=== PATIENT | female | born 1970 | race Two or more races ===

== ENCOUNTER 2024-12-14 20:03 | Emergency (ER) | payer MEDICAID, SELFPAY ==
[2024-12-14 20:04] VITALS: BMI 33.0
[2024-12-14 21:56] VITALS: BP 160/97; PULSE 77; RESP 18; TEMP 37; O2SAT 96
--- NOTE | 2024-12-14 22:34 | XR_ITS ---
Examination: CT cervical spine without contrast 2-D sagittal reconstructions 2-D coronal reconstructions 3-D reconstructions. Exam date and time:December 14, 2024 10:51 PM INDICATIONS: Injury to head and neck today, head pain and neck pain CTDI:vol (mGy) 1540 DLP: (mGycm) 341 Technique: Multiple 2 mm axial sections of the cervical spine have been obtained. The coronal and sagittal reconstructions have been obtained. 3-D reconstructions have been obtained. Low dose protocols were performed. One or more of the following dose reduction techniques were used; automated exposure control, adjustment of the mA and/or KV according to patient size, use of iterative reconstruction technique. Findings: Axial sections demonstrate intact base of the skull. C1 exhibit satisfactory relationship to the odontoid. No acute cervical vertebral body fracture seen. Alignment posterior spinous processes satisfactory. Impression: No acute cervical fracture.
--- NOTE | 2024-12-14 22:34 | XR_ITS ---
Examination: CT brain head without contrast. 2-D sagittal coronal reconstructions Date and time of exam:December 24, 2024 10:50 PM INDICATION: Injury to the head today followed by head pain and dizziness CTDI: vol (mGy):46 DLP: (mGycm):899 Technique: Multiple CT axial sections of the brain have been obtained, 5 mm slice thickness. Contrast has not been administered. 2-D sagittal, coronal reconstructions have been obtained Low dose protocols were performed. One or more of the following dose reduction techniques were used; automated exposure control, adjustment of the mA and/or KV according to patient size, use of iterative reconstruction technique. Findings: No significant ventricular enlargement. Intra-axial or extra-axial hemorrhage density is not seen. No mass effect or midline shift Basal cisterns are not remarkable. Fourth ventricle is midline. Cranial vault intact. Impression: Negative for acute hemorrhage, mass effect or midline shift
[2024-12-14 22:35] LABS: HCG Qualitative,Urine Negative
--- NOTE | 2024-12-14 22:36 | PD.EDHEAD ---
ED Head Injury RME/HPI General Chief complaint: Head Injury Stated complaint: HIT HEAD ON METAL BAR AT WORK Time Seen by Provider: 12/14/24 22:13 Arrival date/time: 12/14/24 20:03 RME / HPI RME / HPI Narrative: 53-year-old female presents to the ED with a complaint of left-sided head contusion, dizziness and decreased concentration secondary to an injury she sustained at work. Patient states she bent over to throw away some trash and struck her head on a metal plate on the wall. This injury occurred yesterday. She denies any loss of consciousness but states she feels like she is weak. She also has associated neck pain she took ibuprofen 800 mg tonight about 7 PM. She has had numbness to her bilateral fingers since the injury. She has had visual changes since the injury but is unable to qualify the changes. Related Data Home Medications ?Medication ?Instructions ?Recorded ?Confirmed losartan 100 1 tab PO QDAY 11/07/17 11/07/17 mg-hydrochlorothiazide 25 mg tablet (Hyzaar) Previous Rx's ?Medication ?Instructions ?Recorded acetaminophen 650 mg 650 mg PO Q8H PRN fever or pain 04/17/18 tablet,extended release #30 tabs cyclobenzaprine 10 mg tablet 10 mg PO Q8H PRN muscle spasm / 04/17/18 pain #14 tabs meloxicam 15 mg tablet (Mobic) 15 mg PO QDAY #10 tabs 04/17/18 ibuprofen 800 mg tablet 800 mg PO Q6H PRN pain #14 tabs 05/21/23 lidocaine 5 % topical patch 1 patch topical Q24H #15 ea 12/15/24 (Lidoderm) meloxicam 15 mg tablet 15 mg PO QDAY #10 tabs 12/15/24 methocarbamol 500 mg tablet 500 mg PO TID PRN Muscle spasms 12/15/24 #15 tabs Allergies Allergy/AdvReac Type Severity Reaction Status Date / Time No Known Allergies Allergy Verified 12/14/24 20:04 Review of Systems Review of Systems Systems Reviewed: All systems reviewed, normal except as documented Past Medical History Past Medical History NEUROLOGIC: Positive Migraine; Negative Neurological Disorders or Seizures CARDIAC: Positive Cardiac Disorders and Hypertension; Negative Congestive Heart Failure RESPIRATORY: Negative Chronic Obstructive Pulmonary Disease (COPD) GASTROINTESTINAL: Positive Gastrointestinal Disorders and Obesity; Negative Hepatitis or Colorectal Cancer GENITOURINARY: Negative Genitourinary Disorders, Renal Disease or Prostate Cancer REPRODUCTIVE: Positive Previous Pregnancies; Negative Breast Cancer, Endometriosis, Pelvic Inflammatory Disease, Testicular Cancer or Uterine Prolapse MUSCULOSKELETAL: Negative Musculoskeletal Disorders or Bone Cancer ENT: Negative Cataracts ENDOCRINE: Negative Endocrine Disorders, Diabetes Mellitus Type 1 or Diabetes Mellitus Type 2 HEMATOLOGIC: Negative Blood Disorders PSYCHO/SOCIAL: Positive Anxiety OTHER HISTORY: Negative Hospitalization, Autoimmune Disease, Down Syndrome, Developmental Delay, Shingles, Falls, Blood Transfusions, Blood Transfusion Reaction, Anesthesia Reactions, Organ Transplant, Chemotherapy, Radiation Therapy, Hyperbaric Therapy, MRSA, VRSA, Vancomycin-Resistant Enterococci, Human Immunodeficiency Virus (HIV), Chicken Pox, Measles, Mumps, Rubella (Armenian Measles), Pertussis, Clostridium Difficile, Breast Cancer, Cervical Cancer, Colorectal Cancer, Lung Cancer, Ovarian Cancer, Prostate Cancer or Testicular Cancer Family History FAMILY HISTORY: Negative Family Psychiatric Problems, Family Respiratory Disorders, Family Cardiac Disorders, Family Gastrointestinal Problems, Family Cancer, Family Surgery or Family Anesthesia Reaction Surgical History SURGICAL: Positive Abdominal Surgery, Joint Replacement and Tubal Ligation; Negative Cardiac Surgery, Endocrine Surgery, Thyroidectomy, Ear Surgery, Tympanostomy Tube, Eye Surgery, Nose Surgery, Oral Surgery, Tonsillectomy, Adenoidectomy, Cochlear Implant, Corneal Transplant, Throat Surgery, Tracheostomy, Gastric Bypass Surgery, Gastrostomy, Bowel Surgery, Nephrectomy, Transurethral Resection, Neurologic Surgery, Brain Shunt, Mastectomy, Lumpectomy, Hysterectomy, Section, Vasectomy or Organ Transplant Social History SMOKING STATUS: Never smoker SECOND HAND EXPOSURE: No ED Exam Narrative Physical exam: A&O, afebrile and non-toxic appearing 53-year-old female, no acute distress. Lung are clear, RRR. TMs are without blood, nares are pale and boggy without bleeding, pharynx is normal. Pupils are PERRL, EOMs are intact, cranial nerves II through XII grossly intact. 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 Sensory and motor are intact to all 4 extremities. DTRs intact. No pronator drift noted. Moves all extremities well. Course Orders Category Date Time Status CT cervical spine wo con Stat Exams 12/14/24 22:[address] head/brain wo con Stat Exams 12/14/24 22:34 Completed HCG Qualitative,Urine Stat Lab 12/14/24 21:54 Completed Acetaminophen Tab [Tylenol ES Tab] Med 12/14/24 22:34 Discontinued 1,000 mg PO X1 ONE Vital Signs Vital signs: Vital Signs Temperature 98.6 F 12/14/24 21:56 Pulse Rate 77 12/14/24 21:56 Respiratory Rate 18 12/14/24 21:56 Blood Pressure 160/97 H 12/14/24 21:56 Pulse Oximetry (%) 96 12/14/24 21:56 Oxygen Delivery Method Room Air 12/14/24 21:56 Head Injury Medications / Prescriptions Medication administrations:: Medication Administration History Discontinued Medications Acetaminophen (Acetaminophen 500 Mg Tablet) 1,000 mg PO X1 ONE Stop: 12/14/24 22:35 Last Admin: 12/14/24 22:57 Dose: 1,000 mg Documented By: CVL Discharge Plan Plan Patient Disposition: HOME (Self Care) Discharge Disposition comment: Stable Prescriptions/Referrals Prescriptions/Med Rec: New meloxicam 15 mg tablet 15 mg PO QDAY Qty: 10 0RF methocarbamol 500 mg tablet 500 mg PO TID PRN (Reason: Muscle spasms) Qty: 15 0RF Rx Instructions: Do not drive or operate machinery while taking this medication. lidocaine [Lidoderm] 5 % adhesive patch,medicated 1 patch topical Q24H Qty: 15 0RF Rx Instructions: Apply to most painful area every 24 hours. Remove after 12 hours and do not apply until the next day. No Action cyclobenzaprine 10 mg tablet 10 mg PO Q8H PRN (Reason: muscle spasm / pain) Qty: 14 0RF meloxicam [Mobic] 15 mg tablet 15 mg PO QDAY Qty: 10 0RF acetaminophen 650 mg tablet extended release 650 mg PO Q8H PRN (Reason: fever or pain) Qty: 30 0RF Rx Instructions: swallow whole; do not crush, chew, break, dissolve, cut, or open losartan-hydrochlorothiazide [Hyzaar] 100-25 mg Tablet 1 tab PO QDAY ibuprofen 800 mg tablet 800 mg PO Q6H PRN (Reason: pain) Qty: 14 0RF Referrals: David Lopes MD [Primary Care Provider] - In 1 week Problem List Clinical Impression: Concussion without loss of consciousness, Postconcussion syndrome, Acute strain of neck muscle Patient/Caregiver Discharge Instructions Education Materials: After a Concussion, ED Head Injury (Adult), ED Neck Sprain or Strain Additional Instructions: Take the medications as prescribed. Do not take ibuprofen/Aleve/Naprosyn/Motrin while taking the meloxicam. Apply the Lidoderm patch as directed, every 24 hours. Remove after 12 hours. Ice packs for the first 2 to 3 days are helpful for muscle strains. After 2 to 3 days, change to heat packs/warm compresses. You can also use deep eating rubs like Biofreeze, Aspercreme, etc. to the painful areas of your neck and shoulder. Follow-up with your primary care physician in 24 to 48 hours. Return to the ED for any new or worsening symptoms. Print Language: Guinean Stand Alone Forms: Frannie Award Info., Patient Portal Info Letter SHARRON/CASPER Supervising Physician SHARRON/CASPER Supervising Physician: Dr. Snyder
[2024-12-14] MEDS: ACETAMINOPHEN 500 MG TABLET 1000 MG PO (22:57)
[2024-12-15] MEDS: DIAZEPAM 5 MG TABLET PO (01:27)
[2024-12-15 01:30] VITALS: RESP 16
== END 2024-12-15 01:31 | disposition home or self-care (01) ==
PROVIDERS: Emergency Provider Emergency Medicine; PCP Family Medicine
DX: S06.0X0A Concussion without loss of consciousness, initial encounter (principal); S16.1XXA Strain of muscle, fascia and tendon at neck level, initial encounter; I10 Essential (primary) hypertension; W22.8XXA Striking against or struck by other objects, initial encounter; Y93.89 Activity, other specified; Y99.0 Civilian activity done for income or pay
CPT/HCPCS: 70450; 72125; 81025; 99283; A9270

== ENCOUNTER 2025-04-24 16:45 | Emergency (ER) | payer MEDICAID, SELFPAY ==
[2025-04-24 17:11] VITALS: BP 117/83; PULSE 66; RESP 16; TEMP 37.1; O2SAT 96; BMI 33.0
--- NOTE | 2025-04-24 17:13 | EDRME_ITS ---
Rapid Medical Screening Exam RME Arrival date/time: 04/24/25 16:45 54-year-old female presents to the emergency department of complaints of left- sided shoulder pain and chest pain patient reports recent dental work Chief Complaint: General Adult/Misc Complain Vital signs: Vital Signs Temperature 98.8 F 04/24/25 17:11 Pulse Rate 66 04/24/25 17:11 Respiratory Rate 16 04/24/25 17:11 Blood Pressure 117/83 04/24/25 17:11 Pulse Oximetry (%) 96 04/24/25 17:11 Oxygen Delivery Method Room Air 04/24/25 17:11 Vital signs reviewed by provider: Yes Exam: On exam patient well-appearing does not appear ill or toxic Clinical Impression: Lab work and imaging obtained
--- NOTE | 2025-04-24 17:13 | XR_ITS ---
EXAMINATION: PA lateral chest 2 views TECHNIQUE: Upright PA lateral chest 2 views Date and time: April 24, 2025, 1729 hours, comparison May 10, 2004 INDICATIONS: Chest pain radiating to the left arm today. FINDINGS: Normal heart size Ectatic aorta. Lungs are clear. Intact osseous structures IMPRESSION: No active disease
--- NOTE | 2025-04-24 17:13 | EKG_ITS ---
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
[2025-04-24 17:45] LABS: Basophils # (Auto) 0.1 Thou/mm3 (0.0-0.2); Basophils % (Auto) 1 % (0-2.5); Eosinophils # (Auto) 0.4 Thou/mm3 (0.0-0.5); Eosinophils % (Auto) 6 % (0-10); Hematocrit 37.7 % (36.0-46.0); Hemoglobin 12.5 g/dL (12.0-16.0); Immature Granulocytes Auto 0.02 Thou/mm3 (0.00-0.00); Lymphocytes # (Auto) 2.3 Thou/mm3 (1.0-4.8); Lymphocytes % (Auto) 34 % (10-50); Mean Corpuscular HGB Conc 33.2 g/dl (31.0-37.0); Mean Corpuscular Hemoglobin 29.8 pg (25.0-35.0); Mean Corpuscular Volume 90 fL (80-100); Monocytes # (Auto) 0.4 Thou/mm3 (0.0-0.8); Monocytes % (Auto) 6 % (0-12); Neutrophils # (Auto) 3.6 Thou/mm3 (1.8-7.7); Neutrophils % (Auto) 53 % (37-80); Nucleated Red Blood Cell # 0.00 Thou/mm3 (0.00-0.00); Nucleated Red Blood Cell % 0 /100 WBC (0); Platelet Count 257 Thou/mm3 (140-440); RDW Standard Deviation 40.7 fL (36.4-46.3); Red Blood Count 4.19 Miln/mm3 (4.00-5.20); White Blood Count 6.8 Thou/mm3 (3.6-11.0)
[2025-04-24 18:06] LABS: Alanine Aminotransferase 22 U/L (10-49); Albumin, Serum 4.4 gm/dL (3.5-5.0); Albumin/Globulin Ratio 1.6 (1.2-2.2); Alkaline Phosphatase 96 U/L (46-116); Anion Gap 12 (7-16); Aspartate Amino Transferase 21 U/L (0-34); BUN/Creatinine Ratio 25 Ratio (12-20); Bilirubin,Total 0.3 mg/dL (0.3-1.2); Blood Urea Nitrogen 20 mg/dL (9-23); Calcium 9.4 mg/dL (8.3-10.6); Calcium (Corrected) 9.4 mg/dL (8.5-10.1); Carbon Dioxide 28.0 mMol/L (20.0-31.0); Chloride 107 mMol/L (98-107); Creatinine (Component) 0.8 mg/dL (0.6-1.3); Estimated Creatinine Clearance 81.7 mL/min (>60); Globulin 2.8 gm/dL (2.3-3.5); Glucose 102 mg/dL (74-106); Lipase 40 U/L (12-53); Osmolality,Calculated 295 (275-295); Potassium 3.5 mMol/L (3.4-5.1); Sodium 147 mMol/L (136-145); Total Protein 7.2 gm/dL (5.7-8.2); Troponin I < 0.002 ng/mL (0.0-0.045); eGFR > 60 See Note
[2025-04-24 20:32] VITALS: BP 137/91; PULSE 66; RESP 18; TEMP 36.7; O2SAT 96
--- NOTE | 2025-04-24 20:33 | PD.EDADULT ---
ED General RME/HPI General Chief complaint: General Adult/Misc Complain Stated complaint: SOB, EXHAUSTED, LEFT SHOULDER PAIN Time Seen by Provider: 04/24/25 18:41 Arrival date/time: 04/24/25 16:45 54-year-old female patient with no past medical history except for recent dental surgery that was done in [place] on 3 days ago. Patient is concerned about possible heart attack, according to the patient she has been having left shoulder pain jaw pain, has been ongoing for several days, comes and goes. This morning noticed it today, described as dull ache severity mild. Denies any cough denies any shortness of breath denies any other complaints. Patient called her dental surgeon and was advised to go to emergency room to rule out heart attack. Has been taking Tylenol Motrin for the pain. RME / HPI RME / HPI narrative: 04/24/25 16:45 54-year-old female presents to the emergency department of complaints of left-sided shoulder pain and chest pain patient reports recent dental work Exam: On exam patient well-appearing does not appear ill or toxic Impression: Lab work and imaging obtained Related Data Home Medications ?Medication ?Instructions ?Recorded ?Confirmed losartan 100 1 tab PO QDAY 11/07/17 11/07/17 mg-hydrochlorothiazide 25 mg tablet (Hyzaar) Previous Rx's ?Medication ?Instructions ?Recorded acetaminophen 650 mg 650 mg PO Q8H PRN fever or pain 04/17/18 tablet,extended release #30 tabs cyclobenzaprine 10 mg tablet 10 mg PO Q8H PRN muscle spasm / 04/17/18 pain #14 tabs meloxicam 15 mg tablet (Mobic) 15 mg PO QDAY #10 tabs 04/17/18 ibuprofen 800 mg tablet 800 mg PO Q6H PRN pain #14 tabs 05/21/23 lidocaine 5 % topical patch 1 patch topical Q24H #15 ea 12/15/24 (Lidoderm) meloxicam 15 mg tablet 15 mg PO QDAY #10 tabs 12/15/24 methocarbamol 500 mg tablet 500 mg PO TID PRN Muscle spasms 12/15/24 #15 tabs Allergies Allergy/AdvReac Type Severity Reaction Status Date / Time No Known Allergies Allergy Verified 04/24/25 16:49 Review of Systems Review of Systems Narrative Review of Systems: Review of system reviewed and within normal limits except mentioned in HPI ED Exam Narrative Physical exam: VITAL SIGNS: Reviewed. GENERAL APPEARANCE: Alert and interactive, follows commands, no acute distress, HEAD AND FACE: Non-traumatic. Swelling and tenderness to left mandibular area. ENT: PERRL, pink conjunctivitis, eyelid no trauma, Mucous membrane moist. NECK: Supple, nontender, no nuchal rigidity. CHEST: No tenderness, no crepitus, no paradoxical movement, no retractions. LUNGS: Clear, well ventilated, symmetric, no rales, no wheezing, no ronchi, no stridor, good breath sounds bilaterally. HEART: Regular rate, regular rhythm, no murmur, no gallops. ABDOMEN: Soft, positive bowel sounds, nondistended, no guarding, nontender, no rebound, no masses, RECTAL: Deferred. GENITAL: Deferred. NEUROLOGICAL: Gross motor function intact sensory function intact, Appropriate for age. MUSCULOSKELETAL: low back nontender, full range of motion. EXTREMITIES: Nontender, full range of motion. SKIN: Color pink, dry, no rash, no lacerations, no abrasions, no contusions. LYMPHATICS: Deferred. Course Quality Measures none Orders Category Date Time Status EKG (ED ONLY) *Do not use* NOW Care 04/24/25 17:13 Completed EKG (ED Only) Stat Exams 04/24/25 17:13 Draft XR chest 2V Stat Exams 04/24/25 17:13 Completed CBC Stat Lab 04/24/25 17:25 Completed Comprehensive Metabolic Panel Stat Lab 04/24/25 17:25 Completed Lipase Stat Lab 04/24/25 17:25 Completed Troponin I Stat Lab 04/24/25 17:25 Completed Vital Signs Vital signs: Vital Signs Temperature 98.8 F 04/24/25 17:11 Pulse Rate 66 04/24/25 17:11 Respiratory Rate 16 04/24/25 17:11 Blood Pressure 117/83 04/24/25 17:11 Pulse Oximetry (%) 96 04/24/25 17:11 Oxygen Delivery Method Room Air 04/24/25 17:11 Discharge Plan Plan Patient Disposition: HOME (Self Care) Discharge Disposition comment: Stable Prescriptions/Referrals Prescriptions/Med Rec: No Action cyclobenzaprine 10 mg tablet 10 mg PO Q8H PRN (Reason: muscle spasm / pain) Qty: 14 0RF meloxicam [Mobic] 15 mg tablet 15 mg PO QDAY Qty: 10 0RF acetaminophen 650 mg tablet extended release 650 mg PO Q8H PRN (Reason: fever or pain) Qty: 30 0RF Rx Instructions: swallow whole; do not crush, chew, break, dissolve, cut, or open losartan-hydrochlorothiazide [Hyzaar] 100-25 mg Tablet 1 tab PO QDAY ibuprofen 800 mg tablet 800 mg PO Q6H PRN (Reason: pain) Qty: 14 0RF meloxicam 15 mg tablet 15 mg PO QDAY Qty: 10 0RF methocarbamol 500 mg tablet 500 mg PO TID PRN (Reason: Muscle spasms) Qty: 15 0RF Rx Instructions: Do not drive or operate machinery while taking this medication. lidocaine [Lidoderm] 5 % adhesive patch,medicated 1 patch topical Q24H Qty: 15 0RF Rx Instructions: Apply to most painful area every 24 hours. Remove after 12 hours and do not apply until the next day. Referrals: David Lopes MD [Primary Care Provider, Family Practice] - In 1 week Problem List Clinical Impression: Jaw pain, Left shoulder pain Patient/Caregiver Discharge Instructions Discharge Activity: activity as tolerated Education Materials: ED Dental Pain Additional Instructions: Thank you for the opportunity for serving you today. You are stable for discharged . You are advised to: Follow-up with your PCP in 1 to 2 days Return to ED for worsening of symptoms Increase oral fluids Your cardiac workup today did not show any sign of a heart attack Print Language: Eritrean Stand Alone Forms: Frannie Award Info., Patient Portal Info Letter SHARRON/CASPER Supervising Physician SHARRON/CASPER Supervising Physician: Md alek MDM Narrative MDM hospital course (for use when minimal MDM required): 54-year-old female patient with no past medical history except for recent dental surgery that was done in [place] on 3 days ago. Patient is concerned about possible heart attack, according to the patient she has been having left shoulder pain jaw pain, has been ongoing for several days, comes and goes. This morning noticed it today, described as dull ache severity mild. Denies any cough denies any shortness of breath denies any other complaints. Patient called her dental surgeon and was advised to go to emergency room to rule out heart attack. Has been taking Tylenol Motrin for the pain. Patient's cardiac workup today all came back unremarkable troponin is normal, I personally reviewed and interpreted the x-ray of this patient. There is no acute abnormalities found, no infiltrates no pneumothorax no hemothorax normal chest x-ray. Review of other structures was without significant abnormal findings also. I additionally reviewed the radiologist report and agree with the interpretation. EKG showed normal sinus rhythm, ventricular rate of 71 bpm, no ST segment elevation depression noted. Results discussed with the patient family. Patient is not having any sign of PR. Not having any chest pain. Repeat cardiac workup is not needed at this time patient's been having pain for several days. Vital signs stable stable discharge home.
== END 2025-04-24 20:35 | disposition home or self-care (01) ==
PROVIDERS: Nurse Practitioner Primary Care; Emergency Provider Family Medicine; PCP Family Medicine
DX: M25.512 Pain in left shoulder (principal); R68.84 Jaw pain; R07.9 Chest pain, unspecified; R94.31 Abnormal electrocardiogram [ECG] [EKG]
CPT/HCPCS: 36415; 71046; 80053; 83690; 84484; 85025; 93005; 99283